=== PATIENT | male | born 1950 | race Caucasian/White ===

== ENCOUNTER 2017-06-18 03:54 | Emergency (ER) | payer MEDICARE, BC ==
--- NOTE | 2017-06-18 04:33 | EDM.PDOC ---
ED HPI GENERAL MEDICAL PROBLEM - General Chief Complaint: Bite:Animal, Insect Stated Complaint: CAT BITE Time Seen by Provider: 06/18/17 04:28 - History of Present Illness INITIAL COMMENTS - FREE TEXT/NARRATIVE: HISTORY AND PHYSICAL: History of present illness: Patient is 67-year-old white male presents with an injury to first digit of his right hand in the form of Right ventricular day's had swelling and pain since. He states is allergic penicillin he denies any other trauma or concern. There's been no fever chills nausea vomiting patient states his tetanus is up-to -date Review of systems: As per history of present illness and below otherwise all systems reviewed and negative. Past medical history: As per history of present illness and as reviewed below otherwise noncontributory. Surgical history: As per history of present illness and as reviewed below otherwise noncontributory. Social history: No reported history of drug or alcohol abuse. Family history: As per history of present illness and as reviewed below otherwise noncontributory. Physical exam: HEENT: Atraumatic, normocephalic, pupils reactive, negative for conjunctival pallor or scleral icterus, mucous membranes moist, throat clear, neck supple, nontender, trachea midline. Lungs: Clear to auscultation, breath sounds equal bilaterally, chest nontender. Heart: S1S2, regular, negative for clicks, rubs, or JVD. Abdomen: Soft, nondistended, nontender. Negative for masses or hepatosplenomegaly. Negative for costovertebral tenderness. Pelvis: Stable nontender. Genitourinary: Deferred. Rectal: Deferred. Extremities: Patient has a puncture wound distal aspect of the second digit of his right hand with erythema and warmth there is no fluctuance there is minimal induration. Neuro: Awake, alert, oriented. Cranial nerves II through XII unremarkable. Cerebellum unremarkable. Motor and sensory unremarkable throughout. Exam nonfocal. Diagnostics: X-ray right hand, CBC Therapeutics: None Impression: #1 Cat Bite right hand with cellulitis Definitive disposition and diagnosis as appropriate pending reevaluation and review of above. R first finger Pain Score (Numeric/FACES): 3 - Related Data Allergies Allergy/AdvReac Type Severity Reaction Status Date / Time Penicillins Allergy Anaphylactic Verified 06/18/17 04:08 Shock Home Meds: Home Meds Tamsulosin [Flomax] 1 tab PO DAILY 10/05/14 [History] Timolol [Betimol] 2 drop EYERT DAILY 10/05/14 [History] Aspirin [Adult Aspirin] 81 mg PO DAILY 06/18/17 [History] Latanoprost 1 drop EYEBOTH DAILY 06/18/17 [History] Past Medical History HEENT History: Reports: Cataract, Glaucoma Other HEENT History: HSV I Cardiovascular History: Reports: Hypertension Gastrointestinal History: Reports: Pancreatitis Genitourinary History: Reports: Prostate Disorder - Infectious Disease History Infectious Disease History: Reports: Hepatitis A - Past Surgical History GI Surgical History: Reports: Cholecystectomy Male Surgical History: Reports: Prostate Biopsy Social & Family History - Family History Family Medical History: Noncontributory - Tobacco Use Smoking Status *Q: Former Smoker Used Tobacco, but Quit: Yes Month/Year Tobacco Last Used: Second Hand Smoke Exposure: No - Caffeine Use Caffeine Use: Reports: Soda - Recreational Drug Use Recreational Drug Use: Yes Drug Use in Last 12 Months: No ED ROS GENERAL - Review of Systems Review Of Systems: ROS reveals no pertinent complaints other than HPI. ED EXAM, ANIMAL BITE - Physical Exam Exam: See Below (See dictation) Course - Vital Signs Last Recorded V/S: Last Vital Signs Temp 36.1 C 06/18/17 04:05 Pulse 85 06/18/17 04:05 Resp 12 06/18/17 04:05 BP 151/82 H 06/18/17 04:05 Pulse Ox 94 L 06/18/17 04:05 - Orders/Labs/Meds Orders: Active Orders 24 hr Category Date Time Status Hand 2V Rt [CR] Stat Exams 06/18/17 04:06 Taken Departure - Departure Time of Disposition: 04:34 Disposition: Home, Self-Care 01 Condition: Good Clinical Impression: Cellulitis, Animal bite - Discharge Information Referrals: Ave Farris NP [Primary Care Provider] - Additional Instructions: The following information is given to patients seen in the emergency department who are being discharged to home. This information is to outline your options for follow-up care. We provide all patients seen in our emergency department with a follow-up referral. The need for follow-up, as well as the timing and circumstances, are variable depending upon the specifics of your emergency department visit. If you don't have a primary care physician on staff, we will provide you with a referral. We always advise you to contact your personal physician following an emergency department visit to inform them of the circumstance of the visit and for follow-up with them and/or the need for any referrals to a consulting specialist. The emergency department will also refer you to a specialist when appropriate. This referral assures that you have the opportunity for followup care with a specialist. All of these measure are taken in an effort to provide you with optimal care, which includes your followup. Under all circumstances we always encourage you to contact your private physician who remains a resource for coordinating your care. When calling for followup care, please make the office aware that this follow-up is from your recent emergency room visit. If for any reason you are refused follow-up, please contact the [facility] emergency department at and asked to speak to the emergency department charge nurse. [facility] [address], [address] [place] [address] Bactrim as prescribed sling as directed follow-up orthopedic surgery above today call to schedule appointment return as needed as discussed - My Orders Last 24 Hours: My Active Orders 06/18/17 04:06 Hand 2V Rt [CR] Stat - Assessment/Plan Last 24 Hours: My Active Orders 06/18/17 04:06 Hand 2V Rt [CR] Stat
[2017-06-18 05:04] VITALS: BP 137/87
--- NOTE | 2017-06-19 12:05 | CR ---
EXAM DATE: 06/18/17 PATIENT'S AGE: 67 Patient: TRES MCDONALD Facility: [place], [place] Site . Site : 1950 Study: XRay Extremity Right [id number] hand-06/18/2017 4:24:28 AM Ordering Physician: Doctor Nguyễn Final Report: Indication: Cat bite to right 2nd finger Technique: Two views right hand Comparison: None. Findings/impression: 1. Mild soft tissue swelling of the right 2nd digit. No soft tissue gas, radiopaque foreign body, or bony erosion identified. 2. Degenerative changes noted throughout the interphalangeal joints and the 1st carpometacarpal joint. Dictated by Hailey Dodd MD @ Jun 18 2017 4:29AM (Electronic Signature) Report Signed by Proxy. [place]
== END 2017-06-18 05:06 | disposition home or self-care (01) ==
LOC: MW.ED 03:54
DX: S61.250A Open bite of right index finger without damage to nail, initial encounter (principal); L03.011 Cellulitis of right finger; Z88.0 Allergy status to penicillin; I10 Essential (primary) hypertension; Z87.891 Personal history of nicotine dependence; Z79.82 Long term (current) use of aspirin; Z79.899 Other long term (current) drug therapy; W55.01XA Bitten by cat, initial encounter
CPT/HCPCS: 36415; 73120-26-RT; 73120-RT; 85025; 99283

== ENCOUNTER 2017-07-07 22:12 | Emergency (ER) | payer MEDICARE, BC ==
[2017-07-07] MEDS ORDERED: Ketorolac 30 MG/ML SDV IM ONE (22:15)
--- NOTE | 2017-07-07 22:35 | EDM.PDOC ---
ED HPI GENERAL MEDICAL PROBLEM - General Chief Complaint: Back Pain or Injury Stated Complaint: NUMBNESS RT LEG/LOW BACK PAIN Time Seen by Provider: 07/07/17 22:33 Source of Information: Reports: Patient - History of Present Illness INITIAL COMMENTS - FREE TEXT/NARRATIVE: HISTORY AND PHYSICAL: History of present illness: [ Patient presents with low back pain for 1 week increasing in severity currently rates 5 out of 10 with weightbearing alleviated at rest radiating down the right leg from the box to the toes denies injury or trauma History of low back pain/injury while jumping on a trampoline in the remote past as a teenager Patient is seen a chiropractor for adjustment on Sunday No footdrop saddle anesthesia bowel or urine symptoms Patient has failed [id number] symptomatic treatments No fever nausea vomiting chills sweats no chest pain shortness breath headache dizziness palpitation no bowel or urine symptoms Review of systems: As per history of present illness and below otherwise all systems reviewed and negative. Past medical history: As per history of present illness and as reviewed below otherwise noncontributory. Surgical history: As per history of present illness and as reviewed below otherwise noncontributory. Social history: No reported history of drug or alcohol abuse. Family history: As per history of present illness and as reviewed below otherwise noncontributory. Physical exam: HEENT: Atraumatic, normocephalic, pupils reactive, negative for conjunctival pallor or scleral icterus, mucous membranes moist, throat clear, neck supple, nontender, trachea midline. Lungs: Clear to auscultation, breath sounds equal bilaterally, chest nontender. Heart: S1S2, regular, negative for clicks, rubs, or JVD. Abdomen: Soft, nondistended, nontender. Negative for masses or hepatosplenomegaly. Negative for costovertebral tenderness. Pelvis: Stable nontender. Genitourinary: Deferred. Rectal: Deferred. Extremities: Atraumatic, negative for cords or calf pain. Neurovascular unremarkable. She leg raise past 30 increases pain Neuro: Awake, alert, oriented. Cranial nerves II through XII unremarkable. Cerebellum unremarkable. Motor and sensory unremarkable throughout. Exam nonfocal. Diagnostics: []Lumbar spine plain films Therapeutics: [Toradol 60 IM ] Impression: [Low back pain Sciatic distribution pain on right ] Definitive disposition and diagnosis as appropriate pending reevaluation and review of above. Back/Hip Pain Score (Numeric/FACES): 5 - Related Data Allergies Allergy/AdvReac Type Severity Reaction Status Date / Time Penicillins Allergy Anaphylactic Verified 07/07/17 22:23 Shock Home Meds: Home Meds Timolol [Betimol] 2 drop EYERT DAILY 10/05/14 [History] Aspirin [Adult Aspirin] 81 mg PO DAILY 06/18/17 [History] Latanoprost 1 drop EYEBOTH DAILY 06/18/17 [History] Losartan [Cozaar] 50 mg PO DAILY 07/07/17 [History] Metoprolol Succinate 50 mg PO DAILY 07/07/17 [History] Past Medical History HEENT History: Reports: Cataract, Glaucoma Other HEENT History: HSV I Cardiovascular History: Reports: Hypertension Gastrointestinal History: Reports: Pancreatitis Genitourinary History: Reports: Prostate Disorder - Infectious Disease History Infectious Disease History: Reports: Hepatitis A - Past Surgical History GI Surgical History: Reports: Cholecystectomy Male Surgical History: Reports: Prostate Biopsy Social & Family History - Family History Family Medical History: Noncontributory - Caffeine Use Caffeine Use: Reports: Soda ED ROS GENERAL - Review of Systems Review Of Systems: See Below ED EXAM, GENERAL - Physical Exam Exam: See Below Course - Vital Signs Last Recorded V/S: Last Vital Signs Temp 98.5 F 07/07/17 22:21 Pulse 64 07/07/17 22:21 Resp 16 07/07/17 22:21 BP 163/84 H 07/07/17 22:21 Pulse Ox 95 07/07/17 22:21 - Orders/Labs/Meds Orders: Active Orders 24 hr Category Date Time Status Lumbar Spine 2 or 3V [CR] Stat Exams 07/07/17 22:15 Taken Meds: Medications Discontinued Medications Generic Name Dose Route Start Last Admin Trade Name Freq PRN Reason Stop Dose Admin Ketorolac Tromethamine 30 mg 07/07/17 22:15 07/07/17 22:27 Toradol IM 07/07/17 22:16 30 mg ONETIME ONE Administration Departure - Departure Time of Disposition: 23:03 Disposition: Home, Self-Care 01 Condition: Good Clinical Impression: Low back pain - Discharge Information Referrals: PCP,None [Primary Care Provider] - Forms: ED Department Discharge Additional Instructions: Medication as prescribed Return if symptoms persist or worsen or new concerning symptoms develop Follow-up with primary care within 2 weeks sooner as needed [facility] [address] [place] [id number] The following information is given to patients seen in the emergency department who are being discharged to home. This information is to outline your options for follow-up care. We provide all patients seen in our emergency department with a follow-up referral. The need for follow-up, as well as the timing and circumstances, are variable depending upon the specifics of your emergency department visit. If you don't have a primary care physician on staff, we will provide you with a referral. We always advise you to contact your personal physician following an emergency department visit to inform them of the circumstance of the visit and for follow-up with them and/or the need for any referrals to a consulting specialist. The emergency department will also refer you to a specialist when appropriate. This referral assures that you have the opportunity for follow-up care with a specialist. All of these measure are taken in an effort to provide you with optimal care, which includes your follow-up. Under all circumstances we always encourage you to contact your private physician who remains a resource for coordinating your care. When calling for follow-up care, please make the office aware that this follow-up is from your recent emergency room visit. If for any reason you are refused follow-up, please contact the [facility] emergency department at and asked to speak to the emergency department charge nurse. - My Orders Last 24 Hours: My Active Orders 07/07/17 22:15 Lumbar Spine 2 or 3V [CR] Stat - Assessment/Plan Last 24 Hours: My Active Orders 07/07/17 22:15 Lumbar Spine 2 or 3V [CR] Stat
[2017-07-07 23:24] VITALS: BP 136/78
--- NOTE | 2017-07-10 10:15 | CR ---
EXAM DATE: 07/07/17 PATIENT'S AGE: 67 Patient: TRES MCDONALD Facility: [place], [place] Site . Site : 1950 Study: XRay Spine Lumbar [id number]/26/2018 10:43:18 PM Ordering Physician: Doctor Nguyễn Final Report: HISTORY: Pain in lower back that shoots down right side to toes. FINDINGS: Standing AP, lateral and coned lateral views lumbar spine demonstrate surgical clips right upper quadrant. There are hypoplastic T12 ribs and 4 lumbar vertebral bodies. There is shilpa discal spurring seen throughout the lumbar spine. No spondylolisthesis is present. Vertebral body heights are maintained. IMPRESSION: 1. 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 2. Degenerative changes of the discs throughout the lumbar spine. Dictated by Deana Pelletier MD @ 07/07/2017 11:30:21 PM Dictated by: Deana Pelletier MD @ 07/07/2017 23:30:39 (Electronic Signature) Report Signed by Proxy. [facility]
== END 2017-07-07 23:15 | disposition home or self-care (01) ==
LOC: MW.ED 22:12
DX: M54.41 Lumbago with sciatica, right side (principal); I10 Essential (primary) hypertension; Z88.0 Allergy status to penicillin; Z79.82 Long term (current) use of aspirin; Z79.899 Other long term (current) drug therapy
CPT/HCPCS: 72100; 96372; 99283; J1885

== ENCOUNTER 2018-08-31 11:17 | Emergency (ER) | payer MEDICARE, BC ==
--- NOTE | 2018-08-31 12:05 | EDM.PDOC ---
ED HPI GENERAL MEDICAL PROBLEM - General Chief Complaint: ENT Problem Stated Complaint: OBJECT GROWING AND NOSE Time Seen by Provider: 08/31/18 11:50 - History of Present Illness INITIAL COMMENTS - FREE TEXT/NARRATIVE: HISTORY AND PHYSICAL: History of present illness: Patient 68-year-old white male presents with a concern of left sinus pain with discharge and left intranasal polyp he's had multiple polyps in the past and is followed up with ENT for this. He denies fever chills nausea vomiting or other complaints Review of systems: As per history of present illness and below otherwise all systems reviewed and negative. Past medical history: As per history of present illness and as reviewed below otherwise noncontributory. Surgical history: As per history of present illness and as reviewed below otherwise noncontributory. Social history: No reported history of drug or alcohol abuse. Family history: As per history of present illness and as reviewed below otherwise noncontributory. Physical exam: HEENT: Atraumatic, normocephalic, pupils reactive, negative for conjunctival pallor or scleral icterus, mucous membranes moist, throat clear, neck supple, nontender, trachea midline. No tenderness over his left maxillary sinus he is noted to have a left intranasal polyp on exam with incomplete obstruction. Lungs: Clear to auscultation, breath sounds equal bilaterally, chest nontender. Heart: S1S2, regular, negative for clicks, rubs, or JVD. Abdomen: Soft, nondistended, nontender. Negative for masses or hepatosplenomegaly. Negative for costovertebral tenderness. Pelvis: Stable nontender. Genitourinary: Deferred. Rectal: Deferred. Extremities: Atraumatic, negative for cords or calf pain. Neurovascular unremarkable. Neuro: Awake, alert, oriented. Cranial nerves II through XII unremarkable. Cerebellum unremarkable. Motor and sensory unremarkable throughout. Exam nonfocal. Diagnostics: None Therapeutics: None Impression: #1 sinusitis #2 left intranasal polyp Definitive disposition and diagnosis as appropriate pending reevaluation and review of above. - Related Data Allergies Allergy/AdvReac Type Severity Reaction Status Date / Time Penicillins Allergy Anaphylactic Verified 08/31/18 11:30 Shock Home Meds: Home Meds Timolol [Betimol] 2 drop EYERT DAILY 10/05/14 [History] Aspirin [Adult Aspirin] 81 mg PO DAILY 06/18/17 [History] Latanoprost 1 drop EYEBOTH DAILY 06/18/17 [History] Losartan [Cozaar] 50 mg PO DAILY 07/07/17 [History] Metoprolol Succinate 50 mg PO DAILY 07/07/17 [History] Past Medical History HEENT History: Reports: Cataract, Glaucoma Other HEENT History: HSV I Cardiovascular History: Reports: Hypertension Gastrointestinal History: Reports: Pancreatitis Genitourinary History: Reports: Prostate Disorder - Infectious Disease History Infectious Disease History: Reports: Hepatitis A - Past Surgical History HEENT Surgical History: Reports: Cataract Surgery, Eye Surgery GI Surgical History: Reports: Cholecystectomy Male Surgical History: Reports: Prostate Biopsy Social & Family History - Family History Family Medical History: Noncontributory - Tobacco Use Smoking Status *Q: Never Smoker - Caffeine Use Caffeine Use: Reports: Soda - Recreational Drug Use Recreational Drug Use: No ED ROS GENERAL - Review of Systems Review Of Systems: ROS reveals no pertinent complaints other than HPI. ED EXAM, GENERAL - Physical Exam Exam: See Below (See dictation) Course - Vital Signs Last Recorded V/S: Last Vital Signs Temp 36.1 C 08/31/18 11:28 Pulse 72 08/31/18 11:28 Resp 18 08/31/18 11:28 BP 153/90 H 08/31/18 11:28 Pulse Ox 94 L 08/31/18 11:28 Departure - Departure Time of Disposition: 12:04 Disposition: Home, Self-Care 01 Condition: Good Clinical Impression: Sinusitis, Nasal polyp - Discharge Information Referrals: PCP,Unknown [Primary Care Provider] - Additional Instructions: The following information is given to patients seen in the emergency department who are being discharged to home. This information is to outline your options for follow-up care. We provide all patients seen in our emergency department with a follow-up referral. The need for follow-up, as well as the timing and circumstances, are variable depending upon the specifics of your emergency department visit. If you don't have a primary care physician on staff, we will provide you with a referral. We always advise you to contact your personal physician following an emergency department visit to inform them of the circumstance of the visit and for follow-up with them and/or the need for any referrals to a consulting specialist. The emergency department will also refer you to a specialist when appropriate. This referral assures that you have the opportunity for followup care with a specialist. All of these measure are taken in an effort to provide you with optimal care, which includes your followup. Under all circumstances we always encourage you to contact your private physician who remains a resource for coordinating your care. When calling for followup care, please make the office aware that this follow-up is from your recent emergency room visit. If for any reason you are refused follow-up, please contact the [facility] emergency department at and asked to speak to the emergency department charge nurse. Follow-up ENT as discussed azithromycin Medrol as prescribed return as needed as discussed
[2018-08-31 12:19] VITALS: BP 156/85
== END 2018-08-31 12:19 | disposition home or self-care (01) ==
LOC: MW.ED 11:17
DX: J32.9 Chronic sinusitis, unspecified (principal); J33.9 Nasal polyp, unspecified; I10 Essential (primary) hypertension; Z88.0 Allergy status to penicillin; Z79.82 Long term (current) use of aspirin; Z79.899 Other long term (current) drug therapy; Z98.49 Cataract extraction status, unspecified eye; Z90.49 Acquired absence of other specified parts of digestive tract
CPT/HCPCS: 99282; 99283

== ENCOUNTER 2019-09-19 08:07 | Emergency (ER) | payer MEDICARE, BC ==
--- NOTE | 2019-09-19 08:42 | EDM.PDOC ---
ED HPI GENERAL MEDICAL PROBLEM - General Chief Complaint: Skin Complaint Stated Complaint: HIVES Time Seen by Provider: 09/19/19 08:08 Source of Information: Reports: Patient, Old Records - History of Present Illness INITIAL COMMENTS - FREE TEXT/NARRATIVE: 69-year-old male with a past medical history of biliary colic, hypertension presenting with lip swelling and a rash. Patient reports a one-week history of intermittent hives to the left upper extremity, back, and left axilla. These lesions are itchy. No history of prior anaphylaxis or diffuse urticaria. He has been taking Benadryl 3-4 times a day without much relief. This morning, around 90 minutes ago, he noted swelling to the left side of his face and the left side of his upper lip. He states that the swelling has improved before he went to the emergency department, at this point he only has mild swelling to the left side of the upper lip. He denies any tongue or throat swelling, sensation of throat tightness, shortness of breath, difficulty breathing or handling secretions, wheezing, coughing, abdominal pain, vomiting or diarrhea. He has no history of anaphylaxis and has never received epinephrine. To his knowledge, he is only allergic to penicillin. Denies any recent medication changes, new house, new carpet, new pets, new soap or toiletry products, fever, chills, skin peeling, etc. Past medical history: Reviewed, no additional pertinent history. Surgical history: Reviewed in system, no additional pertinent history. Social history: Reviewed in system, no additional pertinent history. Family history: Reviewed in system, no additional pertinent history. PHYSICAL EXAM Vital signs reviewed. Nursing notes reviewed. Constitutional: Awake, alert, non-distressed. Head: Normocephalic, atraumatic. Eyes: EOMI, conjunctiva normal, no discharge, no scleral icterus. Ears, Nose, Throat: External ears and nose normal, moist oral mucosa. Mild swelling to the left side of the upper lip. Uvula midline. No evidence of intraoral swelling. Handling secretions without difficulty. Cardiovascular: 2+ radial pulse, capillary refill less than 2 seconds. Pulmonary: normal work of breathing, no accessory muscle use. CTA BL Abdomen/GI: Soft, nontender, nondistended, no guarding or rigidity, no masses. Musculoskeletal: No deformities. Integumentary: Appropriate color for ethnicity, warm, dry, no pallor or jaundice, no rash. Scattered erythematous urticaria noted to the left side of the upper back, left axilla, and the proximal left upper extremity. Neurologic: Alert, answering questions appropriately, normal speech, no facial droop, moving all extremities well. Psychiatric: Appropriate mood and affect, normal thought process. - Related Data Allergies Allergy/AdvReac Type Severity Reaction Status Date / Time Penicillins Allergy Anaphylactic Verified 09/19/19 08:12 Shock Home Meds: Home Meds Timolol [Betimol] 2 drop EYERT DAILY 10/05/14 [History] Latanoprost 1 drop EYEBOTH DAILY 06/18/17 [History] Losartan [Cozaar] 50 mg PO DAILY 07/07/17 [History] Metoprolol Succinate 50 mg PO DAILY 07/07/17 [History] Past Medical History HEENT History: Reports: Cataract, Glaucoma Other HEENT History: HSV I Cardiovascular History: Reports: High Cholesterol, Hypertension Respiratory History: Reports: None Gastrointestinal History: Reports: Pancreatitis Genitourinary History: Reports: Prostate Disorder Musculoskeletal History: Reports: None Neurological History: Reports: None Psychiatric History: Reports: None Endocrine/Metabolic History: Reports: None Hematologic History: Reports: None Immunologic History: Reports: None Oncologic (Cancer) History: Reports: None Dermatologic History: Reports: None - Infectious Disease History Infectious Disease History: Reports: Chicken Pox, Hepatitis non A,B,C, Measles - Past Surgical History Head Surgeries/Procedures: Reports: None HEENT Surgical History: Reports: Cataract Surgery, Eye Surgery Cardiovascular Surgical History: Reports: None Respiratory Surgical History: Reports: None GI Surgical History: Reports: Cholecystectomy Male Surgical History: Reports: Prostate Biopsy Endocrine Surgical History: Reports: None Neurological Surgical History: Reports: None Musculoskeletal Surgical History: Reports: None Oncologic Surgical History: Reports: None Dermatological Surgical History: Reports: None Social & Family History - Family History Family Medical History: Noncontributory - Tobacco Use Smoking Status *Q: Never Smoker Second Hand Smoke Exposure: No - Caffeine Use Caffeine Use: Reports: None - Recreational Drug Use Recreational Drug Use: No ED ROS GENERAL - Review of Systems Review Of Systems: See Below ED EXAM, SKIN/RASH Exam: See Below Course - Vital Signs Text/Narrative:: Patient hemodynamically stable, afebrile, well-appearing, looks nontoxic. Differential diagnosis includes but is not limited to: Urticaria, anaphylaxis, angioedema, drug-related side effect, viral infection, etc. On exam, noted mild urticaria to the left back and left upper extremity. No signs of severe diffuse spread, no sign of multiorgan system involvement to suggest anaphylaxis. Lungs are clear. No evidence of respiratory compromise. Did note mild angioedema to left side of the upper lip but there is no evidence of airway involvement and patient states that the aforementioned swelling has been improving over the past hour or so. I have low concern for rapid progression given that the patient seems to be getting better. Clear voice, speaking in full sentences without difficulty. He is not on AVA inhibitor. Patient is stable to discharge home. Instructed him to continue Benadryl as needed for itching, also recommended adding [id number] Zyrtec or Claritin, Benadryl cream, hydrocortisone cream. I do not feel that systemic corticosteroids are indicated at this point. I am going to refer him to our dermatology practice given that we do not have an premises technician here in the area, patient needs to have consideration for allergy testing or possible hereditary angioedema. Symptoms seem mild at this point the patient can discharge home with strict return precautions for worsening of facial swelling, throat swelling, difficulty breathing or speaking, etc. Plan: Patient is stable to discharge home with outpatient dermatology or primary care follow-up. Strict emergency department return precautions were provided, patient indicated understanding. All questions were answered prior to departure. Discharged in good condition. Last Recorded V/S: Last Vital Signs Temp 35.7 C L 09/19/19 08:12 Pulse 72 09/19/19 08:12 Resp 18 09/19/19 08:12 BP 154/84 H 09/19/19 08:12 Pulse Ox 97 09/19/19 08:12 Departure - Departure Time of Disposition: 08:49 Disposition: Home, Self-Care 01 Condition: Good Clinical Impression: Urticaria Angioedema Qualifiers: Encounter type: initial encounter Qualified Code(s): T78.3XXA - Angioneurotic edema, initial encounter - Discharge Information *PRESCRIPTION DRUG MONITORING PROGRAM REVIEWED*: Not Applicable *COPY OF PRESCRIPTION DRUG MONITORING REPORT IN PATIENT CLARICE: Not Applicable Instructions: Angioedema, Hives Referrals: Duong Hu MD [Ordering Only Provider] - 1 Week Forms: ED Department Discharge Additional Instructions: Thank you for choosing the [facility] emergency department in [place] for your medical needs today. It was a pleasure caring for you. Please continue the Benadryl as needed for your hives. You can also take [id number] Benadryl cream and hydrocortisone cream. I recommended taking once daily Zyrtec or Claritin as well. If your lip swelling or facial swelling gets worse, or if you have difficulty speaking, swallowing, or breathing, you should call 911 or return to the emergency department immediately for reevaluation. Please return the emergency department immediately if your symptoms worsen or if you feel worse. The following information is given to patients seen in the emergency department who are being discharged. This information is to outline your options for follow-up care. We provide all patients seen in our emergency department with a follow-up referral. The need for follow-up, as well as the timing and circumstances, are variable depending upon the specifics of your emergency department visit. If you don't have a primary care physician on staff, we will provide you with a referral. We always advise you to contact your personal physician following an emergency department visit to inform them of the circumstance of the visit and for follow-up with them and/or the need for any referrals to a consulting specialist. The emergency department will also refer you to a specialist when appropriate. This referral assures that you have the opportunity for follow-up care with a specialist. All of these measure are taken in an effort to provide you with optimal care, which includes your follow-up. Under all circumstances we always encourage you to contact your private physician who remains a resource for coordinating your care. When calling for follow-up care, please make the office aware that this follow-up is from your recent emergency room visit. If for any reason you are refused follow-up, please contact the [facility] Emergency Department at and asked to speak to the emergency department charge nurse. If you do not have a primary care physician that is caring for you, you can contact these clinics below to set up an appointment to establish care: [facility] - Primary Care [address] [place] [address] [id number] [facility] [address] [place] [id number] Sepsis Event Note (ED) - Evaluation Sepsis Screening Result: No Definite Risk - Focused Exam Vital Signs: Vital Signs Temp Pulse Resp BP Pulse Ox 09/19/19 08:12 35.7 C L 72 18 154/84 H 97
[2019-09-19 09:22] VITALS: BP 135/72; PULSE 66
== END 2019-09-19 09:01 | disposition home or self-care (01) ==
LOC: MW.ED 08:07
DX: T78.3XXA Angioneurotic edema, initial encounter (principal); E78.00 Pure hypercholesterolemia, unspecified; I10 Essential (primary) hypertension; Z79.899 Other long term (current) drug therapy; Z88.0 Allergy status to penicillin
CPT/HCPCS: 99282; 99283

== ENCOUNTER 2020-08-11 09:11 | Day surgery (SDC) | payer MEDICARE, BC ==
[~2020-08-11 09:11] MED LIST: Lactated Ringers 1,000 ML IV SCH; Midazolam 1 MG/ML 2 ML SDV ONE; Propofol 200 MG/20 ML SDV ONE
--- NOTE | 2020-08-11 10:47 | PCM.OPNOTE ---
- General Post-Op/Procedure Note Date of Surgery/Procedure: 08/11/20 Operative Procedure(s): colonoscopy and polypectomies Findings: multiple colon polyps diverticulosis dictation number [id number] Pre Op Diagnosis: history of colon polyps Post-Op Diagnosis: multiple colon polyps. diverticulosis Primary Surgeon: Jl Estevez Pathology: colon polyps Complications: None Condition: Good
--- NOTE | 2020-08-11 11:06 | PCM.POSTAN ---
POST ANESTHESIA ASSESSMENT - MENTAL STATUS Mental Status: Alert, Oriented - VITAL SIGNS Vital Signs: Last Vital Signs Temp 96.6 F L 08/11/20 09:41 Pulse 55 L 08/11/20 11:00 Resp 12 08/11/20 11:00 BP 101/66 08/11/20 11:00 Pulse Ox 97 08/11/20 11:00 - RESPIRATORY Respiratory Status: Respiratory Rate WNL, Airway Patent, O2 Saturation Stable - CARDIOVASCULAR CV Status: Pulse Rate WNL, Blood Pressure Stable - GASTROINTESTINAL GI Status: No Symptoms - POST OP HYDRATION Hydration Status: Adequate & Stable
--- NOTE | 2020-08-11 11:06 | PCM.PREANE ---
Preanesthetic Assessment - Anesthesia/Transfusion/Family Hx Anesthesia History: Prior Anesthesia Without Reaction Transfusion History: No Prior Transfusion(s) - Review of Systems General: No Symptoms Pulmonary: No Symptoms Cardiovascular: No Symptoms Gastrointestinal: No Symptoms Neurological: No Symptoms Other: Reports: None - Physical Assessment NPO Status Date: 08/11/20 NPO Status Time: 00:00 Vital Signs: Last Vital Signs Temp 96.6 F L 08/11/20 09:41 Pulse 55 L 08/11/20 11:00 Resp 12 08/11/20 11:00 BP 101/66 08/11/20 11:00 Pulse Ox 97 08/11/20 11:00 Height: 5 ft 8 in Weight: 267 lb ASA Class: 3 Mental Status: Alert & Oriented x3 Airway Class: Mallampati = 3 Dentition: Reports: Normal Dentition ROM/Head Extension: Full Lungs: Clear to Auscultation, Normal Respiratory Effort Cardiovascular: Regular Rate, Regular Rhythm - Allergies Allergies/Adverse Reactions: Allergies Allergy/AdvReac Type Severity Reaction Status Date / Time Penicillins Allergy Anaphylactic Verified 08/11/20 09:37 Shock - Acknowledgements Anesthesia Type Planned: General Anesthesia Pt an Appropriate Candidate for the Planned Anesthesia: Yes Alternatives and Risks of Anesthesia Discussed w Pt/Guardian: Yes Pt/Guardian Understands and Agrees with Anesthesia Plan: Yes PreAnesthesia Questionnaire HEENT History: Reports: Cataract, Glaucoma Other HEENT History: wears glasses, hx HSV 1 Cardiovascular History: Reports: High Cholesterol, Hypertension Respiratory History: Reports: None Gastrointestinal History: Reports: Hepatitis, Pancreatitis Other Gastrointestinal History: hepatitis 50 years ago Genitourinary History: Reports: Prostate Disorder Musculoskeletal History: Reports: None Neurological History: Reports: None Psychiatric History: Reports: None Endocrine/Metabolic History: Reports: Obesity/BMI 30+ Hematologic History: Reports: None Immunologic History: Reports: None Oncologic (Cancer) History: Reports: None Dermatologic History: Reports: None - Infectious Disease History Infectious Disease History: Reports: Chicken Pox, Hepatitis non A,B,C, Measles - Past Surgical History Head Surgeries/Procedures: Reports: None HEENT Surgical History: Reports: Cataract Surgery, Eye Surgery Cardiovascular Surgical History: Reports: None Respiratory Surgical History: Reports: None GI Surgical History: Reports: Cholecystectomy Male Surgical History: Reports: Prostate Biopsy, TURP-Transurethral Resection of Prostate Endocrine Surgical History: Reports: None Neurological Surgical History: Reports: None Musculoskeletal Surgical History: Reports: Arthroscopic Knee Oncologic Surgical History: Reports: None Dermatological Surgical History: Reports: None - SUBSTANCE USE Tobacco Use Status *Q: Former Tobacco User Tobacco Use Within Last Twelve Months: No - HOME MEDS Home Medications: Home Meds Timolol [Betimol] 2 drop EYEBOTH DAILY 10/05/14 [History] Latanoprost 1 drop EYEBOTH DAILY 06/18/17 [History] Losartan [Cozaar] 50 mg PO DAILY 07/07/17 [History] Metoprolol Succinate 50 mg PO DAILY 07/07/17 [History] Cyanocobalamin (Vitamin B-12) [Vitamin B-12] 1 tab PO DAILY 08/05/20 [History] Rosuvastatin Calcium 19 mg PO DAILY 08/05/20 [History] - CURRENT (IN HOUSE) MEDS Current Meds: Current Medications Lactated Ringer's (Ringers, Lactated) 1,000 mls @ 125 mls/hr IV ASDIRECTED AXEL Last Admin: 08/11/20 09:36 Dose: 125 mls/hr Documented by: Discontinued Medications Midazolam HCl (Midazolam 1 Mg/Ml 2 Ml Sdv) Confirm Administered Dose 2 mg .ROUTE .STK-MED ONE Stop: 08/11/20 07:25 Propofol (Propofol 200 Mg/20 Ml Sdv) Confirm Administered Dose 600 mg .ROUTE .STK-MED ONE Stop: 08/11/20 07:25
--- NOTE | 2020-08-11 11:06 | PCM48HPAN ---
Post Anesthesia Note - EVALUATION WITHIN 48HRS OF ANESTHETIC Vital Signs in Normal Range: Yes Patient Participated in Evaluation: Yes Respiratory Function Stable: Yes Airway Patent: Yes Cardiovascular Function Stable: Yes Hydration Status Stable: Yes Pain Control Satisfactory: Yes Nausea and Vomiting Control Satisfactory: Yes Mental Status Recovered: Yes Vital Signs: Last Vital Signs Temp 96.6 F L 08/11/20 09:41 Pulse 55 L 08/11/20 11:00 Resp 12 08/11/20 11:00 BP 101/66 08/11/20 11:00 Pulse Ox 97 08/11/20 11:00
[2020-08-11 11:12] VITALS: BP 115/68; PULSE 58
--- NOTE | 2020-08-11 15:34 | OR ---
SURGEON: YVONNE NICE MD DATE OF PROCEDURE: 08/11/2020 PREOPERATIVE DIAGNOSIS: History of colon polyps. POSTOPERATIVE DIAGNOSES: 1. Multiple colon polyps. 2. Diverticulosis. PROCEDURE PERFORMED: Colonoscopy and hot snare polypectomy. PRIMARY SURGEON: Yvonne Nice MD ANESTHESIA: With Anesthesiology. EXTENT OF THE COLONOSCOPY: To the cecum. BOWEL PREP: Okay. LIMITATIONS: None. REASON FOR PROCEDURE: The patient is a pleasant 70-year-old gentleman. His last colonoscopy was in 2011. He said he had a couple of polyps removed. He denies any blood in the stool. He denies any family history of colon cancer. PROCEDURE IN DETAIL: Physical examination was performed. The major risks and benefits associated with the procedure were explained to the patient in detail. The patient verbalized understanding and was in agreement with the same. The patient was then connected to the appropriate monitoring devices, and IV was started. EKG, pulse oximetry, blood pressure, and capnography were monitored throughout the entire procedure. Oxygen and sedation were provided by the anesthesiologist. The patient was placed in left lateral decubitus position. Sedation was began. After adequate sedation was achieved, a digital rectal exam was performed. No rectal masses or polyps were felt. Now, a well-lubricated Olympus colonoscope was inserted into the rectum and advanced under direct visualization to the level of the cecum. Cecum was identified by both visual and anatomic landmarks. Photographs were taken of the cecal cap. The scope was then slowly withdrawn in a circular fashion looking at the color, texture, anatomy, and integrity of mucosa from the cecum to the anal canal. The patient did have some liquid stool which was suctioned and irrigated out for a good look at the mucosa. The patient had a polyp right at about 85 cm, appeared to be in ascending colon. This was removed with hot snare polypectomy. The scope was then withdrawn. The patient had kind of a cluster of smaller polyps right in the 70 to 65 cm area that seemed to be more in the transverse colon. There were four of them. They were all removed with hot snare polypectomy. Scope was continued to be withdrawn. The patient did have quite a few larger diverticulosis throughout the sigmoid colon. The patient had a polyp at 30 cm. This was removed with hot snare polypectomy. Mucosal defect was reapproximated with a Resolution clip. Scope was retroflexed in the rectum. Scope was completely removed and the procedure was terminated. ENDOSCOPIC DIAGNOSES: 1. Multiple colon polyps. 2. Diverticulosis. RECOMMENDATIONS: Followup colonoscopy will depend on pathology, but most likely will need another one in two to three years. He may need one sooner if he develops signs and symptoms such as change in bowel habits or blood in the stool. XENIA / JOSEPH /[id number]
== END 2020-08-11 11:30 | disposition home or self-care (01) ==
LOC: MW.SDS 09:11
PROVIDERS: ATTEND Surgery
DX: Z12.11 Encounter for screening for malignant neoplasm of colon (principal); D12.2 Benign neoplasm of ascending colon; D12.3 Benign neoplasm of transverse colon; D12.6 Benign neoplasm of colon, unspecified; K57.30 Diverticulosis of large intestine without perforation or abscess without bleeding; I10 Essential (primary) hypertension; E78.00 Pure hypercholesterolemia, unspecified; E66.9 Obesity, unspecified; Z88.0 Allergy status to penicillin; Z79.899 Other long term (current) drug therapy; Z98.890 Other specified postprocedural states; Z87.891 Personal history of nicotine dependence; Z68.41 Body mass index [BMI] 40.0-44.9, adult
CPT/HCPCS: 45385; J2250; J2704; J7120; 00812; 99100

== ENCOUNTER 2021-09-18 14:09 | Emergency (ER) | payer MEDICARE, BC ==
[2021-09-18] MEDS ORDERED: Pantoprazole 40 MG in Sodium Chloride 0.9% 10 ML IVPUSH ONE (14:48)
[2021-09-18 16:10] VITALS: BP 152/83; PULSE 57
== END 2021-09-18 16:10 | disposition home or self-care (01) ==
LOC: MW.ED 14:09
DX: J06.9 Acute upper respiratory infection, unspecified (principal); E78.00 Pure hypercholesterolemia, unspecified; I10 Essential (primary) hypertension; E66.9 Obesity, unspecified; Z68.34 Body mass index [BMI] 34.0-34.9, adult; Z88.0 Allergy status to penicillin; Z20.822 Contact with and (suspected) exposure to COVID-19
CPT/HCPCS: 99283; U0002; 99282